=== PATIENT | female | born 1995 | race Caucasian/White ===

== ENCOUNTER 2019-05-06 15:08 | Emergency (ER) | payer OTHER ==
[~2019-05-06] VITALS: Ht 170 cm; Wt 65.0 kg
[2019-05-06] MEDS ORDERED: LEVO1TAB9 (15:24)
--- NOTE | 2019-05-06 15:47 | ED Upper Extremity ---
General Chief Complaint: Upper Extremity Stated Complaint: L HAND FINGERS SMASHED Nursing Triage Note: SMASHED HER LEFT HAND WHILE REPELLING FROM ROPES IN [place]. PT MOVING HAND ALL AROUND IN TRIAGE. TOOK IBUPROFEN 800MG AT 1400 Nursing Sepsis Screen: No Definite Risk History of Present Illness Date Seen by Provider: May 06, 2019 Time Seen by Provider: 15:40 Initial Comments 24-year-old female was doing drills for [employer] when her left hand became trapped between the rope and the top of the [place]. She iced and took ibuprofen, but continues to have pain in the third and fourth fingers over the proximal phalanx. She is right-hand dominant. She denies any other injuries. She denies any chance of and will sign a waiver for x-ray. Onset: this afternoon Pain/Injury Location: left hand Method of Injury: direct blow Allergies and Home Medications Allergies Coded Allergies: No Known Drug Allergies (Unverified , 05/06/19) Patient Home Medication List Home Medication List Reviewed: Yes Review of Systems Constitutional: no symptoms reported, see HPI : No Musculoskeletal: see HPI, joint pain (left hand 3-4 fingers) All Other Systems Reviewed Negative Unless Noted: Yes Past Lzxeoah-Zpqswt-Onlbic Hx Past Med/Social Hx: Reviewed Nursing Past Med/Soc Hx Patient Social History Alcohol Use: Rarely Uses Recreational Drug Use: No Smoking Status: Never a Smoker Recent Foreign Travel: No Contact w/Someone Who Travel: No Recent Infectious Disease Expo: No Recent Hopitalizations: No Seasonal Allergies Seasonal Allergies: No Past Medical History Surgeries: No Respiratory: No Cardiac: No Neurological: No Genitourinary: No Gastrointestinal: No Musculoskeletal: No HEENT: No Cancer: No Did You Recieve Any Treatments: No Psychosocial: No Integumentary: No Physical Exam Vital Signs Vital Signs - First Documented 05/06/19 15:15 Temp 37.0 Pulse 69 Resp 16 B/P (MAP) 117/71 (86) Pulse Ox 99 O2 Delivery Room Air Capillary Refill : Less Than 3 Seconds Height, Weight, BMI Height: '" Weight: lbs. oz. kg; 22.00 BMI Method: General Appearance: WD/WN, no apparent distress Cardiovascular: normal peripheral pulses, regular rate, rhythm Respiratory: chest non-tender, lungs clear, normal breath sounds Hand: Left, bone tenderness (3-4 proximal phaylynx), ecchymosis (3-4 fingers), soft tissue tenderness Neurologic/Tendon: normal sensation, normal motor functions, normal tendon functions Neurologic/Psychiatric: no motor/sensory deficits, alert, normal mood/affect, oriented x 3 Skin: normal color, warm/dry Full ROM to Left 3-4 fingers, resisted flex/ext V/V. Cap refill < 2 sec. Progress/Results/Core Measures Results/Orders My Orders Orders - ROLAND OLIVERA Hand, Left, 3 Views (05/06/19 15:43) Vital Signs/I&O 05/06/19 05/06/19 15:15 16:35 Temp 37.0 37.0 Pulse 69 69 Resp 16 16 B/P (MAP) 117/71 (86) 117/71 (86) Pulse Ox 99 99 O2 Delivery Room Air Blood Pressure Mean: 86 Diagnostic Imaging Diagonstic Imaging: Xray Plain Films/CT/US/NM/MRI: hand Comments [place] NAME: SUSSYSHAYLEE Cedrick [facility] REC#: [id number] PT STATUS: REG ER : 1995 PHYSICIAN: ROLAND OLIVERA ADMIT DATE: 05/06/19/ER Draft Date of Exam:05/06/19 HAND, LEFT, 3 VIEWS INDICATION: Smashed left hand repelling from ropes. EXAMINATION: Left hand, 05/06/2019. FINDINGS: Three views of the left hand. There is no evidence for an acute fracture or dislocation. The joint spaces are well maintained. There is no significant soft tissue swelling. IMPRESSION: No acute process. Dictated on workstation # [id number] Dict: 05/06/19 1652 Trans: 05/06/19 1730 [facility] [id number] Interpreted by: DEREK IDOP MD Electronically signed by: Departure Impression Primary Impression: Contusion of left hand Qualified Codes: S60.222A - Contusion of left hand, initial encounter Disposition: 01 HOME, SELF-CARE Condition: Improved Departure-Patient Inst. Decision time for Depature: 16:30 Patient Instructions: Contusion (DC) Add. Discharge Instructions: Ice and elevate left hand for 20 minutes every 2 hours as needed for pain or swelling. Alternate between Tylenol 650 mg and ibuprofen 600 mg every 4 hours for pain. Activity as tolerated to left hand. Follow-up with your primary care provider in one week if symptoms are not improving or worsen. Return to emergency department for urgent, health care needs. All discharge instructions reviewed with patient and/or family. Voiced understanding. ROLAND OLIVERA May 06, 2019 15:47
[2019-05-06 16:35] VITALS: BP 117/71
--- NOTE | 2019-05-06 17:31 | Diagnostic Imaging Report ---
INDICATION: Smashed left hand repelling from ropes. EXAMINATION: Left hand, 05/06/2019. FINDINGS: Three views of the left hand. There is no evidence for an acute fracture or dislocation. The joint spaces are well maintained. There is no significant soft tissue swelling. IMPRESSION: No acute process. Dictated by: Dictated on workstation # [id number]
== END 2019-05-06 16:35 | disposition home or self-care (01) ==
LOC: ER 15:11
DX: S60.222A Contusion of left hand, initial encounter (principal); W23.1XXA Caught, crushed, jammed, or pinched between stationary objects, initial encounter
CPT/HCPCS: 73130